=== PATIENT | male | born 1995 | race Two or more races ===

== ENCOUNTER → 2025-02-08 | Emergency (ER) | payer OTHER ==
[~2025-02-08] VITALS: Ht 170.2 cm; Wt 68.0 kg
== END | disposition left against medical advice (07) ==
LOC: ER 17:42
DX: Z53.21 Procedure and treatment not carried out due to patient leaving prior to being seen by health care provider (principal)

== ENCOUNTER → 2025-02-09 | Emergency (ER) | payer OTHER ==
[~2025-02-09] VITALS: Ht 170.2 cm; Wt 68.0 kg
[~2025-02-09] MED LIST: BUTALB/ACETAMINOPHEN/CAFFEINE 1 TAB TABLET PO STA; KETOROLAC TROMETHAMINE 60 MG VIAL IM STA
[2025-02-09 14:50] LABS: BASO % 0.5 % (0.1-1.2); EOS # 0.13 (0.04-0.54); EOS % 2.1 % (0.7-7.0); LYMPH # 2.30 (1.18-3.74); LYMPH % 37.5 % (19.3-53.1); MEAN PLATELET VOLUME 10.10 fl (9.4-12.4); MONO # 0.29 (0.24-0.82); MONO % 4.7 % (4.7-12.5); NEUT # 3.37 (1.56-6.13); NEUT % 55.0 % (34.0-71.1); RED CELL DISTRIBUTION WIDTH 12.1 % (11.6-14.4)
[2025-02-09 14:54] LABS: ERYTHROCYTE SEDIMENTATION RATE 1 mm/hr (0-15)
[2025-02-09 15:17] LABS: ALT/SGPT 21.0 U/L (12-78); AST/SGOT 12.0 U/L (15-37); BILIRUBIN TOTAL 0.4 mg/dL (0.3-1.2); BUN CREA RATIO 15.0 (7.0-25.0); CREATININE SERUM 1.04 mg/dL (0.70-1.30); GFR 85.04; GLOBULINA 3.9 G/DL (2.4-3.5); GLUCOSE FASTING 107.0 mg/dL (65-100); OSMOLALITY SERUM 285.0 MOSM/KG (275-295)
[2025-02-09 16:30] LABS: COVID-19 AG NEGATIVE (NEGATIVE)
== END | disposition home or self-care (01) ==
LOC: ER 11:58
PROVIDERS: General Practice
DX: R51.9 Headache, unspecified (principal); Z20.822 Contact with and (suspected) exposure to COVID-19

== ENCOUNTER 2025-02-10 13:14 | Outpatient (CLI) | payer OTHER | END 2025-02-10 13:36 | disposition home or self-care (01) | LOC: TOM 13:14 | PROVIDERS: ATTEND General Practice | DX: R51.9 Headache, unspecified (principal) ==